=== PATIENT | female | born 2005 | race Caucasian/White ===

== ENCOUNTER 2023-12-31 21:27 | Emergency (ER) | payer MEDICAID, SELFPAY ==
[2023-12-31 21:32] VITALS: BP 130/86; PULSE 90; RESP 18; TEMP 36.9; O2SAT 100; BMI 26.2
--- NOTE | 2023-12-31 21:36 | ED_ITS ---
<Statement entered by Keaton Posada MD - 12/31/23 23:41> I was consulted by the HILDA, and we discussed the complexity of the problems being addressed. I approved the treatment and management plan for this patient's care in the emergency department, thus performing a substantive portion of the medical decision making. Keaton Posada MD Discharge Plan Disposition Patient Disposition: Home, Self-Care Condition: Good Referrals Follow up/Referrals: Mekhi Alvarado MD [Staff Physician] - See instructions Cathy Madsen PA [Primary Care Provider] - See instructions Activity Restrictions/Add. Instructions Additional Instructions/Restrictions: Please follow the disimpaction protocol then start taking MiraLAX once a day. Please call in the morning to establish an appointment with gastroenterology for further review. Return to ER for any worsening signs or symptoms as needed Clinical Impressions Clinical Impression: Hemorrhoids Qualifiers: Hemorrhoid type: unspecified Qualified Code(s): K64.9 - Unspecified hemorrhoids Constipation Qualifiers: Constipation type: unspecified constipation type Qualified Code(s): K59.00 - Constipation, unspecified Instructions Patient Instructions: DI for Hemorrhoids, DI for Constipation, DI for Gastrointestinal Bleeding Print Language Print Language: Namibian Discharge ED Provider: Keaton Posada General Adult HPI General Chief complaint: GI Bleed Stated complaint: bleeding from rectum Time Seen by Provider: 12/31/23 21:36 History of Present Illness HPI narrative: Patient presents for evaluation of initially reported rectal bleeding. Patient gives a history of hemorrhoids and also occasional bleeding when going to the bathroom. She also reports pain occasionally when going to the bathroom. She does not have a bowel movement every day and does not have the symptoms all the time. Actually at her last evidence of bleeding was Monday of last week. However she still has pain with defecation and came in for evaluation. She denies fever chills hemoptysis hematuria hematemesis. She has never been . Related Data Allergies Allergy/AdvReac Type Severity Reaction Status Date / Time NO KNOWN ALLERGIES Allergy Uncoded 04/04/17 14:08 [facility] Disclaimer: The information contained in this section may have been updated after the patient was seen, as this information can be updated by other users. Social History Smoking Status: Current every day smoker alcohol intake: current alcohol intake frequency: holidays/special occasions only current occupational status: employed Travel in the last 8 weeks: None ROS Obtained: Yes Systems reviewed as appropriate & no additional complaints except as documented Physical Exam General General appearance: alert and in no apparent distress Respiratory Respiratory exam: Present normal lung sounds bilaterally Cardiovascular Cardiovascular exam: Present regular rate Rectal Exam comment: Patient has evidence of previous hemorrhoids however there are no evidence of piles. There is some skin irritation at the along with what appears to be a possible skin tear that is healed at approximately the 6 o'clock position posteriorly. No evidence of bleeding currently. Neurological Exam Neurological exam: Present alert and oriented X3 Medical Decision Making Yousif Inquiry Pt receiving controlled substance: No Vital Signs: 12/31/23 21:32 12/31/23 22:05 Temperature 98.4 F 98.6 F Temperature Source Oral Oral Pulse Rate 72 Pulse Rate [Right Radial] 90 Respiratory Rate 18 18 Blood Pressure 126/74 Blood Pressure [Right Arm] 130/86 Blood Pressure Mean [Right Arm] 100 Blood Pressure Source Automatic Cuff Blood Pressure Source [Right Arm] Automatic Cuff Blood Pressure Position Supine Blood Pressure Position [Right Arm] Supine 02 Sat by Pulse Oximetry 100 Oxygen Delivery Method Room Air Room Air Medical Decision Narrative: In summary patient is a 18-year-old female who presents to the emergency department for evaluation of painful defecation and rectal bleeding. Patient is hemodynamically stable upon arrival, afebrile. Shank Piece Tacker physical exam with the nurse shows evidence of irritation at approximately 6 o'clock position post eriorly along with possible previous skin tear that appears to be healed or and/or healing. There is no evidence of thrombosed or actively bleeding hemorrhoids currently. Differential diagnosis includes anal fissure versus constipation versus hemorrhoids versus skin tear etc. Initial workup was considered however given her classic presentation any laboratory or stool for occult blood is deferred at this time especially with findings on physical exam. I had interactive discussion with the patient and her parents at her bedside and via shared decision making was given a disimpaction sheet, instructions on bowel regimen after disimpaction, referred to gastroenterology for further evaluation and strict return precautions. Critical Care Critical Care Time Critical Care Time: No
--- NOTE | 2023-12-31 22:03 | PC.NURSE ---
Patient is not having a GI bleed- she is having bleeding from her rectum r/t hemorrhoid
[2023-12-31 22:05] VITALS: BP 126/74; PULSE 72; RESP 18; TEMP 37; O2SAT 98
== END 2023-12-31 22:08 | disposition home or self-care (01) ==
PROVIDERS: Emergency Provider Emergency Medicine; PCP Physician Assistant
DX: K64.9 Unspecified hemorrhoids (principal); K59.00 Constipation, unspecified
CPT/HCPCS: 99282

== ENCOUNTER 2025-02-19 16:48 | Emergency (ER) | payer SELFPAY ==
[2025-02-19 17:14] VITALS: BP 153/98; PULSE 98; RESP 16; TEMP 36.9; O2SAT 99; BMI 27.3
--- NOTE | 2025-02-19 17:19 | PC.NURSE ---
pt updated on wait time and instructed to let staff know if any changes. pt educated on labs obtained.
--- OUTSIDE RECORDS SUMMARY | 2025-02-19 17:23 | XMS_ITS | Clinical Summary ---
Author Organization Healthcare Address [address] [place] [address] Care Team Providers Care Fertilizer Loader Name Role Phone Pcp, No Primary Care Provider Unavailabl e Allergies No known active allergies Medications etonogestrel-eluti ng contraceptive device 68 MG implant 1 each by Implant route 1 (one) time. Active Active Problems Problem Noted Date Diagnosed Date Encounter for gynecological examination without abnormal finding 07/07/2021 Assessment & Plan (07/07/2021 4:15 PM EDT): - STI testing today - discussed starting paps at 19yo - nexplanon for contraception - discussed lubrication for dyspaurenia - if not improved can return for ultrasound to [facility] for cyst - declines Gardasil - will send urine culture Family History Medical History Relation Name Comments Cervical cancer Maternal Grandmother Breast cancer Other Relation Name Status Comments Maternal Grandmother Other Social History Tobacco Use Types Packs/Day Years Used Date Smoking Tobacco: Never Smokeless Tobacco: Current Alcohol Use Standard Drinks/Week Comments Never 0 (1 standard drink = 0.6 oz pur e alcohol) Comments Unknown Sex and Gender Information Value Date Recorded Sex Assigned at Not on file Legal Sex Female 1:43 PM EST Gender Identity Not on file Sexual Orientation Not on file Last Filed Vital Signs Vital Sign Reading Time Taken Comments Blood Pressure 118/76 07/07/2021 3:47 PM EDT Pulse 75 07/07/2021 3:47 PM EDT Temperature - - Respiratory Rate - - Oxygen Saturation - - Inhaled Oxygen Concentration - - Weight 70.1 kg (154 lb 9.6 oz) 07/07/2021 3:47 P M EDT Height 167.6 cm (5' 6 ) 07/07/2021 3:47 PM EDT Body Mass Index 24.95 07/07/2021 3:47 PM EDT Plan of Treatment Health Maintenance Due Date Last Done Comments [facility]-Depression Screening 2003 [facility]-Infant/Child/Adol SDOH Screenings 2003 HPV Vaccines (1 - 3-dose series) 07/13/2018 [facility]-Hepatitis A Vaccines (2 of 2 - 2-dose series) 06/01/2019 11/29/2018 [facility]- SDOH Screenings 07/13/2021 [facility]-Adult SDOH Screenings 07/13/2021 [facility]-Pap Smear 07/13/2024 [facility]-DTaP,Tdap,and Td Vaccines (3 - Td or Tdap) 12/05/2024 12/05/2014, 2003 [id number] Vaccine (1 - season) 2024 [facility]-Influenza Vaccine (#1) 2024 [facility]-Zoster Vaccines (1 of 2) 07/13/2053 08/03/2007, 08/06/2004 [facility]-Hepatitis B Vaccines Completed 004, 2003, 2003 [facility]-HIB Vaccines Completed 08/06/2004, , 2003 [facility]-IPV Vaccines Completed 08/03/2007, , 02/03/2004, Additional history exists [facility]-Varicella Vaccines Completed 08/03/2007, 2004 [facility]-Pneumococcal Vaccine: Pediatrics (0 to 5 Years) and At-Risk Patients (6 to 49 Years) Aged Out No longer eligible based on patient's age to complete this topic [facility]-Rotavirus Vaccines Aged Out No lo nger eligible based on patient's age to complete this topic Insurance Aditya Fermin OWEN Doyle [id number] [employer] Care Teams Fertilizer Loader Relationship Specialty Start Date End Date Pcp, [place] [address] PCP - General Family Medicine 07/07/21
--- OUTSIDE RECORDS SUMMARY | 2025-02-19 17:23 | XMS_ITS | Clinical Summary ---
Author Organization [facility] Address [address] [place] [address] Care Team Providers Care Look Out Tower Fire Watcher Name Role Phone Provider, No Known Primary Care Provider Unavail able Allergies No known active allergies Medications Levonorgestrel- Eth Estradiol (Twirla) 120-30 MCG/24HR patch weekly Place 1 patch on the skin as directed by provider 1 (One) Time Per Week. 3 patch 12 02/19/2024 Active Active Problems No known active problems Family History Medical History Relation Name Comments Suicidality Father COMITTED SUICID E WHEN GREYSON WAS 2 Heart disease Maternal Grandmother Heart disease Mother Breast cancer Paternal Great-Grandmother Relation Name Status Comments Father Maternal Grandmother Mother Paternal Great-Grandmother Social History Tobacco Use Types Packs/Day Years Used Date Smoking Tobacco: Every Day Cigarettes Tobacco Cessation:Ready to Q uit: Not Asked; Counseling Given: Not Answered Alcohol Use Standard Drinks/Week Comments Yes 0 (1 standard drink = 0.6 oz pur e alcohol) Comments No Sex and Gender Information Value Date Recorded Sex Assigned at Not on file Legal Sex Female 6:14 PM EDT Gender Identity Not on file Sexual Orientation Not on file Occupation Industry Job Start Date Job End Date STUDENT Not on file Not on file Not on file Last Filed Vital Signs Vital Sign Reading Time Taken Comments Blood Pressure 122/80 02/19/2024 1:22 PM EST Pulse 91 01/03/2017 6:17 PM EDT Temperature 36.8 C (98.3 F) 01/03/2017 6:17 PM EDT Respiratory Rate 20 01/03/2017 6:17 PM EDT Oxygen Saturation 98% 01/03/2017 6:17 PM EDT Inhaled Oxygen Concentration - - Weight 78.1 kg (172 lb 3.2 oz) 02/19/2024 1:22 P M EST Height 172.7 cm (5' 8 ) 02/19/2024 1:22 PM EST Body Mass Index 26.18 02/19/2024 1:22 PM EST Plan of Treatment Upcoming Encounters Date Type Department Care Team (Late st Contact Info) Description 02/20/2025 9:30 AM EST Office Visit [facility] OBGYN [address] [place] [address] Shreya Molina, [employer] [address] [facility] [address] [place] [address] Health Maintenance Due Date Last Done Comments Annual Gynecologic Pelvic and Breast Exam 2003 ANNUAL PHYSICAL 01/03/2017 HPV VACCINES (1 - 3-dose series) 07/13/2018 MENINGOCOCCAL B VACCINE (1 of 2 - Standard) 2019 CHLAMYDIA SCREENING 02/06/2021 02/07/2020 Pneumococcal Vaccine 0-49 (1 of 2 - PCV) 07/13/2022 12/23/2004, 04/27/2004, 02/03/2004, Additional history exists PAP SMEAR 07/13/2024 INFLUENZA VACCINE 11/15/2024 TDAP/TD VACCINES (2 - Td or Tdap) 12/05/2024 12/05/2014 MENINGOCOCCAL VACCINE Aged Out 12/05/2014, 015 No longer eligible based on patient's age to complete this topic HEPATITIS C SCREENING Completed 07/07/2021, 022 Procedures Procedure Name Priority Date/Time Associated Diagnosis Comments CHLAMYDIA TRACHOMATIS, NEISSERIA GONORRHOEAE, PCR W/ CONFIRMATION Routine 02/07/2020 12:00 AM EDT Screening for STD (sexually transmitted disease) from Last 3 Months or Most Recently Relevant to Health Maintenance Results * Chlamydia trachomatis, Neisseria gonorrhoeae, PCR w/ confirmation - Urine, Urinary Bladder (02/07/2020 12:00 AM EDT) Chlamydia trachomatis, ESTRELLA Negative Negative [facility] Neisseria gonorrhoeae, ESTRELLA Negative Negative [facility] Urine Specimen from urinary bladder / Unknown 02/07/2020 02/07/2020 Comment:URINE Narrative [facility] - 02/11/2020 6:08 AM EDT Performed at: 01 - [facility] [id number] Social Security Assessor: Ragini Mcneill MD, Phone: [phone] us Tasha Tamez APRN MICROBIOLOGY - GENERAL ORDERA BLES Final Result Performing Organization Address City/State/[facility] Co de Phone Number [facility] [address] [place] [address], [place] [phone] [facility] [address] [place] [address], [place] [phone] from Last 3 Months or Most Recently Relevant to Health Maintenance [place] [address] [place] [address] MEDICAID Care Teams Look Out Tower Fire Watcher Relationship Specialty Start Date End Date Provider, No Known [facility] [place] [address] PCP - General 10/10/23
[2025-02-19 17:34] LABS: Microscopic, Urine URINE MICROSCOPIC (MICROSCOPIC)
[2025-02-19 17:39] LABS: Hematocrit 39.1 % (37.0-47.0); Hemoglobin 12.6 g/dL (12.2-16.2); Immature Granulocytes % 0.4 %; Mean Corpuscular HGB Conc 32.2 g/dL (31.8-35.4); Mean Corpuscular Hemoglobin 25.6 pg (27.0-31.2); Mean Corpuscular Volume 79.3 fl (81-99); Nucleated Red Blood Cells % 0 %; Platelet Count 275 K/mm3 (142-424); Red Blood Count 4.93 M/mm3 (4.20-5.40); Red Cell Distribution Width-SD 40.1 fL; White Blood Count 12.3 K/mm3 (4.8-10.8)
--- NOTE | 2025-02-19 17:43 | PC.NURSE ---
rounded on patient in the lobby, updated on wait time. denies any needs.
[2025-02-19 17:49] LABS: Bilirubin,Urine Negative (Negative); Color,Urine YELLOW (Yellow); Glucose,Urine (UA) Negative (Negative); Ketones,Urine TRACE (Negative); Leukocyte Esterase,Urine 1+ (Negative); PH,Urine 6.0 (5.0-8.5); Protein,Urine TRACE (Negative); Specific Gravity, Urine 1.015 (1.005-1.030); Urine Pregnancy, HCG Qual. Negative (Negative); Urobilinogen,Urine 0.2 EU/dl (0.2)
[2025-02-19 17:54] LABS: Albumin Level 5.4 g/dl (3.5-5.0); Chloride 102 mmol/L (98-107); Potassium 4.3 mmoL/L (3.5-5.1); Sodium 137 mmol/L (136-145)
[2025-02-19 17:57] LABS: Alanine Aminotransferase 15 U/L (12-78); Albumin/Globulin Ratio 2.0 (1.1-1.8); Alkaline Phosphatase 63 U/L (38-126); Anion Gap 14.3 mEq/L (5-15); Aspartate Amino Transferase 24 U/L (14-36); Bilirubin,Total 0.8 mg/dl (0.2-1.3); Blood Urea Nitrogen 11 mg/dl (7-17); Calcium 9.7 mg/dl (8.4-10.2); Carbon Dioxide 25 mmol/L (22.0-30.0); Creatinine Clearance Estimated 186 mL/min (50-200); Creatinine,Serum 0.60 mg/dl (0.52-1.04); Estimated Glomerular Filt Rate 126 ml/min (>60); GFR (African American) 153 ML/MIN (>60); Globulin 2.7 g/dL (1.3-3.2); Glucose 87 mg/dl (74-100); Total Protein,Serum 8.1 g/dl (6.3-8.2)
[2025-02-19 18:14] LABS: Bacteria,Urine 3+ /lpf; Squamous Epithelial Cell,Urine Occasional #/hpf (0-5)
--- NOTE | 2025-02-19 18:15 | ED_ITS ---
<Statement entered by Anurag Mccloud MD - 02/20/25 10:29> I was consulted by the HILDA, and we discussed the complexity of the problems being addressed. I approve the treatment and management plan for this patient's care in the emergency department, thus performing a substantive portion of the medical decision making. Anurag Mccloud MD Discharge Plan Disposition Chief Complaint: Back Pain/Injury Prescriptions Prescriptions: New cefdinir 300 mg capsule 300 mg PO BID 10 Days Qty: 20 0RF phenazopyridine [Pyridium] 200 mg tablet 200 mg PO Q8H PRN (Reason: pain) Qty: 6 0RF Referrals Follow up/Referrals: Cathy Madsen PA [Primary Care Provider, Emergency Medicine] - See instructions Activity Restrictions/Add. Instructions Additional Instructions/Restrictions: Increase fluids and rest. Take meds as directed. If not improving please follow-up with your PCP. If you have any worsening symptoms please return to the ED. Clinical Impressions Clinical Impression: Urinary tract infection Instructions Patient Instructions: DI for Urinary Tract Infection (UTI) Print Language Print Language: Salvadorean Discharge ED Provider: Anurag Mccloud General Adult HPI General Chief complaint: Back Pain/Injury Stated complaint: lower back pain,fever,chills , nausea Time Seen by Provider: 02/19/25 18:08 Mode of Arrival: Ambulatory Source of Information: Patient Description of Symptoms (Recalled from ER Triage Doc. by RN): pt presents to ED c/o burning with urination that started 2 weeks ago. pt reports she attempted to treat what she thought was a UTI with OTC medication with no relief. pt reports pain is now located in her back. History of Present Illness HPI narrative: 19-year-old female presents to the ED today with complaint of burning with urination that started 2 weeks ago. She has been trying to do [id number] meds because she has no insurance. She now has pain in her back. She says that her symptoms are getting worse and not better. She denies current fever but feels like she may have had one at one time. No other symptoms at this time. Related Data Previous Rx's ?Medication ?Instructions ?Recorded cefdinir 300 mg capsule 300 mg PO BID 10 days #20 ca ps 02/19/25 phenazopyridine 200 mg tablet 200 mg PO Q8H PRN pain 6 doses #6 02/19/25 (Pyridium) tabs Allergies Allergy/AdvReac Type Severity Reaction Status Date / Time NO KNOWN ALLERGIES Allergy Uncoded 04/04/17 14:08 [facility] Disclaimer: The information contained in this section may have been updated after the patient was seen, as this information can be updated by other users. Social History (Updated 12/31/23 @ 23:22 by YEE Shanks) Smoking Status: Never smoker alcohol intake: current alcohol intake frequency: holidays/special occasions only current occupational status: employed Travel in the last 8 weeks?: None Have you lived/traveled outside US in past 30 days?: No Contact w/someone who lives/traveled outside US past 30 days?: No Exposure to someone with infectious disease in past 14 days?: No Do you have a fever (greater than 100.4 F or 38 C)?: No Have you tested positive for COVID-19?: No Exposed to someone with COVID-19 in past 14 days?: No Do you have a sore throat?: No Do you have a cough?: No Do you have any weakness?: No Do you have any diarrhea?: No Are you experiencing any unusual bleeding?: No Do you have any muscle aches/pain?: No Do you have any abdominal pain?: No Are you experiencing loss of taste or smell?: No ROS Obtained: Yes Systems reviewed as appropriate & no additional complaints except as documented Constitutional Constitutional: Reports as per HPI Physical Exam General General appearance: alert Head Head exam: normocephalic Eye Eye exam: Present PERRL and EOMI ENT ENT exam: Present normal oropharynx and mucous membranes moist Neck Neck exam: Present full ROM and trachea midline Respiratory Respiratory exam: Present normal lung sounds bilaterally Cardiovascular Cardiovascular exam: Present regular rate, normal rhythm, normal heart sounds, +S1 and +S2 Abdominal Exam Abdominal exam: Present soft and normal bowel sounds Extremities Exam Extremities exam: Present full ROM and normal capillary refill Back Exam Back exam: Present normal inspection, CVA tenderness (R) and CVA tenderness (L) Neurological Exam Neurological exam: Present alert and oriented X3 Skin Skin exam: Present warm and dry Medical Decision Making Medical Records Screening: Per USPSTF and CDC recommendations, given the prevalence of disease in our region, it is our hospital?s policy to screen for HIV and viral Hepatitis for all patients aged 18 and over and those with ongoing risk factors. Yousif Inquiry Pt receiving controlled substance: No Yousif was queried for this patient: No Vital Signs: 02/19/25 17:14 Temperature 98.5 F Temperature Source Oral Pulse Rate [Right Radial] 98 H Respiratory Rate 16 Blood Pressure [Right Arm] 153/98 H Blood Pressure Mean [Right Arm] 116 Blood Pressure Source [Right Arm] Automatic Cuff Blood Pressure Position [Right Arm] Sitting 02 Sat by Pulse Oximetry 99 Oxygen Delivery Method Room Air Lab Data Lab Results 02/19/25 17:24: Urine Color Yellow, Urine Appearance Clear, Urine pH 6.0, Ur Specific Irons 1.015, Urine Protein Trace, Urine Glucose (UA) Negative, Urine Ketones Trace, Urine Blood Trace-i, Urine Nitrate Positive A, Urine Bilirubin Negative, Urine Urobilinogen 0.2, Ur Leukocyte Esterase 1+ A, Urine RBC 3-5, Urine WBC 10-20, Ur Squamous Epith Cells Occasional, Urine Bacteria 3+, Urine HCG, Qual Negative 02/19/25 17:26: WBC 12.3 H, RBC 4.93, Hgb 12.6, Hct 39.1, MCV 79.3 L, MCH 25.6 L , MCHC 32.2, RDW 13.8, Plt Count 275, MPV 10.2, Neut % (Auto) 76.7, Lymph % (Auto) 10.8, Alpine % (Auto) 11.6 H, Eos % (Auto) 0.2, Baso % (Auto) 0.3, Neut # (Auto) 9.4 H, Lymph # (Auto) 1.3, Alpine # (Auto) 1.4 H, Eos # (Auto) 0.0, Baso # (Auto) 0.0, Sodium 137, Potassium 4.3, Chloride 102, Carbon Dioxide 25, Anion Gap 14.3, BUN 11, Creatinine 0.60, Estimated Creat Clear 186, Estimated GFR 126, Est GFR ( Amer) 153, Glucose 87, Calcium 9.7, Total Bilirubin 0.8, AST 24, ALT 15, Alkaline Phosphatase 63, Total Protein 8.1, Albumin 5.4 H, Globulin 2.7, Albumin/Globulin Ratio 2.0 H 02/19/25 17:26 02/19/25 17:26 Orders (Tests/Meds): ED MEDICATIONS Generic Name Dose Route Start Last Admin Trade Name Freq PRN Reason Stop Dose Admin Sodium Chloride 1,000 mls @ 999 mls/hr 02/19/25 18:13 02/19/25 18:37 Sod Chlor 0.9% 1000ml Bag IV 02/19/25 19:13 999 mls/hr .Q1H1M ONE Administration Ceftriaxone Sodium 2 gm/ 100 mls @ 200 mls/hr 02/19/25 18:15 02/19/25 18:39 Sodium Chloride IV 03/01/25 18:14 200 mls/hr Q24H DOMINIC Administration Discontinued Medications Generic Name Dose Route Start Last Admin Trade Name Freq PRN Reason Stop Dose Admin Ketorolac Tromethamine 30 mg 02/19/25 18:13 02/19/25 18:37 Ketorolac 30mg/Ml Vial IV 02/19/25 18:14 30 mg ONCE ONE Administration Ondansetron HCl 4 mg 02/19/25 18:13 02/19/25 18:40 Ondansetron 4mg/2ml Vial IV 02/19/25 18:14 4 mg ONCE ONE Administration ORDERS Category Date Time Status Complete Blood Count Auto Diff Stat Lab 02/19/25 17:26 Completed Comprehensive Metabolic Panel Stat Lab 02/19/25 17:26 Completed HIV Combo Stat Lab 02/19/25 17:26 Received Hepatitis C Ab Qual. W/ RFX Stat Lab 02/19/25 17:26 Received Urinalysis and Microscopic Stat Lab 02/19/25 17:24 Completed Urine , HCG Qual. Stat Lab 02/19/25 17:24 Completed Urine Culture Stat Micro 02/19/25 17:24 Received Medical Decision Narrative: patient is a 19-year-old female presenting to the emergency department for evaluation of dysuria, back pain. Patient is hemodynamically stable and nontoxic-appearing upon arrival, afebrile. Differential diagnosis includes pyelonephritis, UTI, sepsis, among others. Workup will be conducted with hematologic labs, specific imaging. Initial inventions include crystalloid bolus, analgesics, antibiotics. Initial workup reviewed by me hematologic labs are remarkable for white count of 12.3, normal electrolytes, nitrite positive urine with 1+ leuks. Patient does complain of back pain and worsening pain since she has been taken [id number] medicines. She tells me that she does not have insurance and she does not understand how the insurance works but knows that she cannot go to the doctor. She is worried that her bladder infection has gotten worse. Patient has been given Toradol, Rocephin and IV fluids here in the ED and she is feeling much improved. I sent antibiotics to the [facility] pharmacy here in [place] for her as she requested. Patient is safe for discharge home once her IV fluids have finished. Critical Care Critical Care Time Critical Care Time: No
[2025-02-19] MEDS: 0.9 % SODIUM CHLORIDE 1000ML 1,000 ML 999 ML IV (18:37)
[2025-02-19] MEDS: KETOROLAC 30MG/ML VIAL 30 MG IV (18:37)
[2025-02-19] MEDS: ONDANSETRON 4MG/2ML VIAL 4 MG IV (18:40)
[2025-02-19 19:05] VITALS: BP 137/86; PULSE 92; O2SAT 100
[2025-02-19 19:37] LABS: Hepatitis C Ab Qual. W/ RFX NEGATIVE (Negative)
[2025-02-19 19:39] VITALS: BP 149/84; PULSE 83; RESP 20; TEMP 36.6; O2SAT 100
--- NOTE | 2025-02-21 06:29 | PC.NURSE ---
Urine culture results given to MD Maria, no changes to prescriptions at this time
--- NOTE | 2025-02-21 17:39 | PC.NURSE ---
I discussed the pts final urine culture with . No change needed to her treatment.
== END 2025-02-19 19:52 | disposition home or self-care (01) ==
PROVIDERS: Emergency Provider Student in an Organized Health Care Education/Training Program; PCP Physician Assistant
DX: N39.0 Urinary tract infection, site not specified (principal); R30.0 Dysuria; M54.59 Other low back pain; B96.20 Unspecified Escherichia coli [E. coli] as the cause of diseases classified elsewhere
CPT/HCPCS: 80053; 81001; 81025; 85025; 86803; 87086; 87088; 87186; 87389; 87491; 87591; 87661; 96365; 96366; 96375; 99284; J0696; J1885; J2405; J7030